=== PATIENT | male | born 1990 | race Caucasian/White ===

== ENCOUNTER 2024-11-13 01:04 | Emergency (ER) | payer SELFPAY ==
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
[2024-11-13 01:14] VITALS: BP 116/78; PULSE 80; RESP 20; TEMP 36.6; O2SAT 97; BMI 18.3
[2024-11-13] MEDS: HYDROcodone-acetaminophen 7.5-325 mg Tablet 1 TAB PO (01:30)
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
== END 2024-11-13 02:30 | disposition home or self-care (01) ==
PROVIDERS: Emergency Provider Emergency Medicine
DX: Z04.1 Encounter for examination and observation following transport accident (principal); S82.492A Other fracture of shaft of left fibula, initial encounter for closed fracture; V89.2XXA Person injured in unspecified motor-vehicle accident, traffic, initial encounter
CPT/HCPCS: 29530; 70450; 71045; 72125; 72128; 72131; 73502; 73552; 73562; 99284; E0114; J9999

== ENCOUNTER → 2024-11-16 13:44 | Outpatient (BNVA) | payer SELFPAY | PROVIDERS: Visit Provider Orthopaedic Surgery | DX: S82.832A Other fracture of upper and lower end of left fibula, initial encounter for closed fracture (principal); X58.XXXA Exposure to other specified factors, initial encounter | CPT/HCPCS: 73562; 73590 ==